=== PATIENT | male | born 1955 | race Caucasian/White ===

== ENCOUNTER 2016-09-08 14:54 | Emergency (ER) | payer OTHER ==
--- NOTE | 2016-09-08 15:16 | UCPHY ---
H & P Time Seen by Provider: 09/08/16 15:12 Patient Type: Established HPI/ROS: CHIEF COMPLAINT: Left 3rd finger pain and swelling. HISTORY OF PRESENT ILLNESS: The patient is a 61-year-old male presenting with left middle finger pain, swelling, and erythema for the past few days. He cannot elucidate an acute onset but believes he may have "nicked it" during rock climbing. Pain is moderate, intermittent in nature, worse at night, and does not radiate. He describes it as a throbbing. He denies red streaking, elbow or axillary pain. His last tetanus shot was in the past 5 years. REVIEW OF SYSTEMS: Constitutional: No fever, no chills. Skin: No rashes Past Medical/Surgical History: Hip surgery. Social History: Nonsmoker. Smoking Status: Never smoked Physical Exam: General Appearance: Alert, no distress. Afebrile. Normal phonation. No respiratory distress. Anxious. Skin: Warm and dry, no rashes. No lymphangitis Musculoskeletal: There is no swelling to the joints of the hand. There is an area of white discoloration and exquisite tenderness at the tip of the left middle finger just at the edge of the nail underneath the nail in the midline. It is not fluctuant but it is thick in the morning. There is some distinct tenderness. There is no felon type changes on the past itself. There is no paronychia changes in the skin margins at the cuticle. There is no lymphangitis. [place]'s sign is negative. No lymphangitis. No epitrochlear nodes. No axillary nodes. Extremities: No edema. Homans sign negative. No cords. Psychiatric: Patient is anxious. No psychomotor agitation. Overtime became more anxious though not diaphoretic and required Trendelenburg as well as a cold cloth and Ativan sublingual. Constitutional: Initial Vital Signs Temperature (C) 36.6 C 09/08/16 15:22 Heart Rate 51 L 09/08/16 15:22 Respiratory Rate 18 09/08/16 15:22 Blood Pressure 128/74 H 09/08/16 15:22 O2 Sat (%) 95 09/08/16 15:22 O2 Delivery Mode Room Air Allergies/Adverse Reactions: No Known Allergies Allergy (Verified 09/08/16 15:17) Home Medications: Medication Instructions Recorded Cephalexin [Keflex (*)] 500 mg PO TID #21 cap 09/08/16 Cephalexin [Keflex (*)] 500 mg PO TID #9 cap 09/08/16 Eye Drops Dispenser 09/08/16 Flomax 09/08/16 Lisinopril 09/08/16 oxyCODONE CR 09/08/16 Medical Decision Making Procedures: Procedure: Abscess drainage. The patient's abscess was located on the [left 3rd finger]. Digital block performed with 1% xylocaine without epinephrine. I obtained verbal consent from the patient to drain the abscess who was informed about the possibility of bleeding and pain. The abscess was incised with [a scalpel] and a [small, pea- sized] amount of purulent drainage was expressed. Culture was taken. I express the pus, then his fingers were placed in the bowl for soaking. The patient tolerated the procedure well. No foreign body found. The procedure was performed by myself. Differential Diagnosis: Diagnostic possibilities are limited to that of a nail margin infection. This is not actually of the cuticle or of the felon type. In reviewing the drug interaction protocol as Bactrim is contraindicated in the setting of lisinopril due to the potential hyperkalemia. Thereby pending a actual culture indicative of MRSA who being Keflex 500 three times daily for 3 days. He has a prescription for additional 7 days in case this is indeed sensitive. However, if indeed it is more some clindamycin might be the best alternative given the drug interaction of lisinopril and the Bactrim, and would forego any preliminary prescription of same, pending actual diagnostic testing - Data Points Medications Given: Discontinued Medications Lorazepam (Ativan) 1 mg SL EDNOW ONE Stop: 09/08/16 15:48 Last Admin: 09/08/16 15:50 Dose: 1 mg Oxymetazoline HCl (Afrin Nasal [place]) 2 sprays [place] EDNOW ONE Stop: 09/08/16 16:22 Last Admin: 09/08/16 16:33 Dose: 2 sprays Departure - Departure Disposition: Home, Routine, Self-Care Clinical Impression: Cellulitis of finger of left hand, Abscess, Anxiety Condition: Good Instructions: Cellulitis (ED) Additional Instructions: Take Keflex as prescribed. In 3 days time when you call for the results, you should continue with 7 more days of Keflex if indeed the organism is sensitive to Keflex. At the same token, a change of medications may be necessary at that time. [id number] Soak your hand in warm, soapy water and open up wound for drainage, as instructed. Follow up with your primary care provider in the next 3-4 days if symptoms are not improving. Your usual to take her usual pain medication regimen for your pain in the fingers well Return to Urgent Care or the emergency department if you develop fever, red streaking, worsening pain, other signs of infection, or other serious worsening of condition. Referrals: SIMI ROMO [Primary Care Provider] - As per Instructions Prescriptions: Cephalexin [Keflex (*)] 500 mg PO TID #9 cap Cephalexin [Keflex (*)] 500 mg PO TID #21 cap - PQRS PQRS Measurement: Not applicable Report Scribed for: Corby Thompson Report Scribed by: Capo Phillips Date of Report: 09/08/16 Time of Report: 15:29
[2016-09-08 15:25] VITALS: RESP 18; O2SAT 95
[2016-09-08] MEDS ORDERED: LORazepam 1 MG TAB SL ONE (15:47)
[2016-09-08] MEDS ORDERED: OXYMETAZOLINE 30 ML NASAL SPRAY EACHNARE ONE (16:21)
[2016-09-08 16:38] VITALS: BP 122/74; PULSE 72; TEMP 98.2
== END 2016-09-08 16:53 | disposition home or self-care (01) ==
LOC: CED 14:54
PROC: 0H9GXZZ Drainage of Left Hand Skin, External Approach (ICD-10-PCS; principal; 2016-09-08)
DX: L02.512 Cutaneous abscess of left hand (principal); L03.012 Cellulitis of left finger; F41.9 Anxiety disorder, unspecified
CPT/HCPCS: 99214-PO; G0463-PO

== ENCOUNTER → 2016-12-10 | Outpatient (CLI) | payer OTHER | LOC: FCPNEURO 20:30 | PROVIDERS: ATTEND Student in an Organized Health Care Education/Training Program | DX: G47.33 Obstructive sleep apnea (adult) (pediatric) (principal) ==

== ENCOUNTER → 2018-02-06 | Outpatient (CLI) | payer OTHER | LOC: FIMAGING 16:59 | PROVIDERS: ATTEND Family Medicine | DX: Z01.818 Encounter for other preprocedural examination (principal) ==